=== PATIENT | female | born 1980 | race Caucasian/White ===

== ENCOUNTER 2018-07-29 16:36 | Emergency (ER) | payer OTHER ==
[2018-07-29 21:34] LABS: Urine Specific Gravity 1.025 (1.005-1.030)
[2018-07-29 21:34] LABS: Urine Blood TRACE (NEG); Urine Glucose NEGATIVE (NEG); Urine Protein NEGATIVE (NEG); Urine Specific Gravity 1.025 (1.005-1.030); Urine pH 5.5 (5.0-7.0)
--- NOTE | 2018-07-29 22:00 | ER ---
Nurse's Notes [facility] Name: Augusto López Age: 37 yrs Sex: Female : 1980 Arrival Date: 07/29/2018 Time: 16:40 Bed 10 Private MD: Diagnosis: Pain in right toe(s)-Right second toe Presentation: 07/29 16:45 Presenting complaint: Patient states: pain, swelling, and redness noted to right 2 nd aa5 toe. Denies known injury. Transition of care: patient was not received from another setting of care. Onset of symptoms was July 28, 2018. Risk Assessment: Do you want to hurt yourself or someone else? Patient reports no desire to harm self or others. Initial Sepsis Screen: Does the patient meet any 2 criteria? No. Patient's initial sepsis screen is negative. Does the patient have a suspected source of infection? No. Patient's initial sepsis screen is negative. Care prior to arrival: None. 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 - Social history:: Smoking status: Patient/guardian denies using tobacco. - Ebola Screening: : No symptoms or risks identified at this time. Screenin:54 Abuse screen: Denies threats or abuse. Nutritional screening: No deficits noted. fc Tuberculosis screening: No symptoms or risk factors identified. Fall Risk None identified. Assessment: 20:40 General: Appears uncomfortable, Behavior is calm, cooperative, appropriate for age. fc Pain: Complains of pain in Right second toenail Pain currently is 8 out of 10 on a pain scale. Quality of pain is described as aching, dull, throbbing, Pain began 1 day ago. Is continuous, Aggravated by increased activity, repositioning, weight bearing. Neuro: Level of Consciousness is awake, alert, obeys commands, Oriented to person, place, time, situation, Appropriate for age. Cardiovascular: No deficits noted. Respiratory: Reports. GI: No deficits noted. : No deficits noted. EENT: No deficits noted. Derm: Skin is pink, warm \T\ dry. redness to right second toe. Musculoskeletal: Circulation, motion, and sensation intact. Capillary refill < 3 seconds, Range of motion: intact in all extremities, Swelling present in Right second toenail Reports pain in Right second toenail. 21:00 Reassessment: Yue OCAMPO in to see and examine pt. 21:50 Reassessment: DR Arredondo in to see and examine pt after discussion with Yue OCAMPO. Vital Signs: 16:46 BP 122 / 73; Pulse 92; Resp 16 S; Temp 99.0(TE); Pulse Ox 98% on R/A; Weight 90.72 kg aa5 (R); Height 5 ft. 7 in. (170.18 cm) (R); Pain 6/10; 16:46 Body Mass Index 31.32 (90.72 kg, 170.18 cm) aa5 ED Course: 16:40 Patient arrived in ED. mr 16:45 Arm band placed on. aa5 16:46 Triage completed. aa5 20:44 Sky Turner PA is PHCP. cp 20:44 Aidan Arredondo MD is Attending Physician. cp 20:54 Patient has correct armband on for positive identification. Bed in low position. Call fc light in reach. 20:54 No provider procedures requiring assistance completed. 21:30 XRAY Foot RIGHT 3 View In Process Unspecified. EDAL 22:23 Reginald Baxter, RN is Primary Nurse. fu 22:40 Crutch training done. made to wear post op shoe. fu Administered Medications: 22:00 Drug: Ibuprofen 800 mg Route: PO; 22:26 Drug: Tylenol 1000 mg Route: PO; fu Outcome: 21:59 Discharge ordered by . cp 22:42 Discharged to home with crutches. fu 22:42 Condition: stable 22:42 Discharge instructions given to patient, Instructed on crutch walking, Demonstrated understanding of instructions, follow-up care, medications, crutch walking, Prescriptions given X 1. 22:43 Patient left the ED. fu Signatures: Dispatcher [employer] [facility] FrantzNakia ChantalecristineCheyanne RN RN Nirali Davis RN RN aa5 Page, Sky, PA PA cp Umadhay, Reginald, RN RN fu
--- NOTE | 2018-07-29 22:01 | EDPHYS ---
Physician Documentation [facility] Name: Augusto López Age: 37 yrs Sex: Female : 1980 Arrival Date: 07/29/2018 Time: 16:40 Bed 10 Private MD: ED Physician Aidan Arredondo HPI: 07/29 21:00 This 37 yrs old Female presents to ER via Ambulatory with complaints of toe cp problem. 21:00 The patient presents with pain, that is acute, swelling, tenderness. The complaints cp affect the right second toe. 21:00 Context: resulted from an unknown cause, the patient can fully bear weight, the patient cp is able to ambulate, with mild difficulty. Onset: The symptoms/episode began/occurred 2 day(s) ago, and became worse yesterday. Associated signs and symptoms: Pertinent negatives: calf tenderness, fever, numbness, injury. Severity of symptoms: in the emergency department the symptoms are unchanged. 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 - Social history:: Smoking status: Patient/guardian denies using tobacco. - Ebola Screening: : No symptoms or risks identified at this time. ROS: 21:05 Constitutional: Negative for body aches, chills, fever, poor PO intake. cp 21:05 Eyes: Negative for injury, pain, redness, and discharge. cp 21:05 ENT: Negative for drainage from ear(s), ear pain, sore throat, difficulty swallowing, difficulty handling secretions. 21:05 Cardiovascular: Negative for chest pain. 21:05 Respiratory: Negative for cough, wheezing. 21:05 Abdomen/GI: Negative for abdominal pain, vomiting, diarrhea, constipation. 21:05 Back: Negative for pain at rest, pain with movement. 21:05 MS/extremity: Positive for pain, swelling, tenderness, of the right second toe, Negative for injury or acute deformity, decreased range of motion, paresthesias. 21:05 All other systems are negative. Exam: 21:10 Constitutional: The patient appears in no acute distress, alert, awake, non-toxic, well cp developed, well nourished. 21:10 Head/Face: Normocephalic, atraumatic. cp 21:10 Eyes: Periorbital structures: appear normal, Conjunctiva: normal, Lids and lashes: appear normal, bilaterally. 21:10 ENT: External ear(s): are unremarkable, Nose: is normal, Posterior pharynx: Airway: no evidence of obstruction, patent. 21:10 Chest/axilla: Inspection: normal. 21:10 Cardiovascular: Rate: normal. 21:10 Respiratory: the patient does not display signs of respiratory distress, Respirations: normal, no use of accessory muscles, no retractions, no splinting, no tachypnea. 21:10 Abdomen/GI: Exam negative for discomfort, distension, guarding, Inspection: abdomen appears normal. 21:10 Musculoskeletal/extremity: Extremities: grossly normal except: noted in the right second toe: pain, swelling, tenderness, There is no evidence of decreased ROM, erythema, open wound, Perfusion: the extremity is normally perfused throughout, Sensation intact. Vital Signs: 16:46 BP 122 / 73; Pulse 92; Resp 16 S; Temp 99.0(TE); Pulse Ox 98% on R/A; Weight 90.72 kg aa5 (R); Height 5 ft. 7 in. (170.18 cm) (R); Pain 6/10; 16:46 Body Mass Index 31.32 (90.72 kg, 170.18 cm) aa5 MDM: 20:44 Patient medically screened. cp 21:00 Differential diagnosis: fracture, gout, cellulitis. cp 21:57 Data reviewed: vital signs, nurses notes, radiologic studies, plain films. cp 21:57 Test interpretation: by ED physician or midlevel provider: plain radiologic studies. cp Counseling: I had a detailed discussion with the patient and/or guardian regarding: the historical points, exam findings, and any diagnostic results supporting the discharge/admit diagnosis, radiology results. ED course: VSS. Xrays of right foot negative for fracture. 07/29 21:28 Order name: Urine Dipstick--Ancillary (enter results); Complete Time: 21:41 ar5 07/29 21:41 Interpretation: Reviewed. cp 07/29 21:29 Order name: Urine --Ancillary (enter results); Complete Time: 21:41 ar5 07/29 21:41 Interpretation: Reviewed. 07/29 20:53 Order name: XRAY Foot RIGHT 3 View; Complete Time: 19:29 cp 07/29 21:04 Order name: Urine Test (obtain specimen); Complete Time: 21:25 cp 07/29 21:04 Order name: Urine Dipstick-Ancillary (obtain specimen); Complete Time: 21:25 cp 07/29 21:58 Order name: Crutches; Complete Time: 22:40 cp 07/29 21:58 Order name: Post-op shoe; Complete Time: 22:40 cp Administered Medications: 22:00 Drug: Ibuprofen 800 mg Route: PO; 22:26 Drug: Tylenol 1000 mg Route: PO; fu Disposition: 07/30 08:56 Co-signature as Attending Physician, Aidan Arredondo MD I agree with the assessment and ar plan of care. Disposition: 07/29/18 21:59 Discharged to Home. Impression: Pain in right toe(s) - Right second toe. - Condition is Stable. - Discharge Instructions: Musculoskeletal Pain. - Prescriptions for Prednisone 20 mg Oral Tablet - take 2 tablet by ORAL route once daily for 5 days; 10 tablet. - Medication Reconciliation Form, Thank You Letter, Antibiotic Education, Prescription Opioid Use form. - Follow up: Private Physician; When: 2 - 3 days; Reason: Worsening of condition. - Problem is new. - Symptoms have improved. Signatures: Dispatcher [employer] EDMS Cheyanne Mcconnell RN RN Nirali Davis RN RN aa5 Sky Turner PA PA Aidan Painting MD MD ar Reginald Baxter RN RN Corrections: (The following items were deleted from the chart) 07/29 22:43 21:59 07/29/2018 21:59 Discharged to Home. Impression: Pain in right toe(s) - Right fu second toe. Condition is Stable. Forms are Medication Reconciliation Form, Thank You Letter, Antibiotic Education, Prescription Opioid Use. Follow up: Private Physician; When: 2 - 3 days; Reason: Worsening of condition. Problem is new. Symptoms have improved. cp
[2018-07-29] MEDS ORDERED: IBUPROFEN 400 MG TAB ONE (22:07)
[2018-07-29] MEDS ORDERED: ACETAMINOPHEN 500 MG TAB ONE (22:33)
--- NOTE | 2018-07-30 08:17 | RAD REPORT ---
EXAM DESCRIPTION: RAD - Foot Right 3 View - 07/29/2018 9:30 pm CLINICAL HISTORY: Foot pain, pain and swelling with redness second toe COMPARISON: None. FINDINGS: No fracture, dislocation or periosteal reaction. No acute or destructive bone process of t he second toe nor elsewhere in the right foot. No air or foreign body in the soft tissues. Plantar and Achilles spurs are present. IMPRESSION: Negative right foot examination for acute finding. Specifically, no significant bone or soft tissue finding second toe.
== END 2018-07-29 22:43 | disposition home or self-care (01) ==
LOC: ER 16:36
DX: M79.674 Pain in right toe(s) (principal); F41.9 Anxiety disorder, unspecified
CPT/HCPCS: 81003; 81025; 99284

== ENCOUNTER 2020-05-06 17:44 | Emergency (ER) | payer OTHER ==
--- NOTE | 2020-05-06 21:18 | RAD REPORT ---
EXAM DESCRIPTION: RAD - Chest Single View - 05/06/2020 9:06 pm CLINICAL HISTORY: CHEST PAIN, COVID positive COMPARISON: None TECHNIQUE: AP portable chest image was obtained 05/06/2020 9:06 pm . FINDINGS: No dense mass or consolidation seen. Patient has minimal patchy airspace opacification in the lower lung dale. No failure or volume overload. Heart and vasculature are normal. No measurable pleural effusion and no pneumothorax. No acute bone finding. Prominent S-shaped thoracic scoliotic c urvature present. No acute aortic findings suspected. IMPRESSION: Minimal airspace opacification. Given the provided history, this is probably a minimal C OVID-19 pneumonia.
[2020-05-06 21:22] LABS: Absolute Lymphocytes (CBC) 3.1 K/uL (0.7-4.9); Basophils % 1.3 % (0-1.3); Hematocrit 43.2 % (36.0-45.0); Lymphocytes % 36.4 % (15.3-44.8); MPV 10.2 fL (7.6-11.3); RBC Red Blood Cell Count 4.93 M/uL (3.86-4.86)
[2020-05-06 21:23] LABS: Protime INR 0.99
[2020-05-06 21:40] LABS: ALT/SGPT 29 U/L (12-78); AST/SGOT 20 U/L (15-37); Albumin 3.8 g/dL (3.4-5.0); Alkaline Phosphatase 99 U/L (45-117); BUN Blood Urea Nitrogen 9 mg/dL (7-18); Bicarbonate 25 mmol/L (21-32); Bilirubin Direct < 0.1 mg/dL (0-0.2); Bilirubin Total 0.3 mg/dL (0.2-1.0); Glucose Level 81 mg/dL (74-106); NT PRO-BNP 15 pg/mL (<125); Potassium 3.8 mmol/L (3.5-5.1); Protein, Total 8.2 g/dL (6.4-8.2); Sodium Level 139 mmol/L (136-145); Troponin (Emerg Dept Use Only) < 0.02 ng/mL (0.0-0.045)
--- NOTE | 2020-05-06 23:17 | ER ---
Nurse's Notes [facility] Name: Augusto López Age: 39 yrs Sex: Female : 1980 Arrival Date: 05/06/2020 Time: 17:47 Bed 8 Private MD: Diagnosis: Chest pain, unspecified;Coronavirus infection, unspecified Presentation: 05/06 18:03 Chief complaint: Patient states: Tested positive for COVID on 05-01-20, have been jl7 asymptomatic with intermittent chest pressure, last night had worsening chest pressure with left arm numbness today. Coronavirus screen: Client reports previous positive COVID test result. Date of collection: May 01, 2020 Staff notified of need for isolation. Ebola Screen: No symptoms or risks identified at this time. Initial Sepsis Screen: Does the patient meet any 2 criteria? No. Patient's initial sepsis screen is negative. Does the patient have a suspected source of infection? No. Patient's initial sepsis screen is negative. Risk Assessment: Do you want to hurt yourself or someone else? Patient reports no desire to harm self or others. Onset of symptoms was May 04, 2020. Care prior to arrival: None. 18:03 Method Of Arrival: Ambulatory 7 18:03 Acuity: GABRIEL 2 jl7 Triage Assessment: 18:08 General: Appears in no apparent distress. uncomfortable, Behavior is calm, cooperative, jl7 appropriate for age. Pain: Complains of pain in mid-sternal area Pain radiates to left arm Pain currently is 0 out of 10 on a pain scale. Cardiovascular: Patient's skin is warm and dry. 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 - Social history:: Smoking status: Patient denies any tobacco usage or history of. Screenin:26 Abuse screen: Denies threats or abuse. Denies injuries from another. Nutritional rv screening: No deficits noted. Tuberculosis screening: No symptoms or risk factors identified. Fall Risk None identified. Assessment: 21:25 General: Appears comfortable, Behavior is calm, cooperative. Pain: Complains of pain in rv chest Pain began suddenly. Pain: Quality of pain is described as pressure. Pain: Pain does not radiate. Neuro: Level of Consciousness is awake, alert, obeys commands, Oriented to person, place, time, situation. Cardiovascular: Patient's skin is warm and dry. Rhythm is sinus rhythm. Respiratory: Airway is patent Respiratory effort is even, unlabored, Breath sounds are clear bilaterally. Vital Signs: 18:03 BP 138 / 76; Pulse 89; Resp 17; Temp 97.8; Pulse Ox 100% ; Weight 117.93 kg; Height 5 jl7 ft. 7 in. (170.18 cm); Pain 0/10; 21:27 BP 127 / 73; Pulse 74; Resp 16; Pulse Ox 100% on R/A; rv 22:37 BP 118 / 73; Pulse 80; Resp 18; Pulse Ox 99% ; ea 23:27 BP 117 / 74; Pulse 81; Resp 17; Temp 98; Pulse Ox 99% on R/A; rv 18:03 Body Mass Index 40.72 (117.93 kg, 170.18 cm) jl7 ED Course: 17:47 Patient arrived in ED. bp1 18:07 Triage completed. jl7 18:08 Arm band placed on right wrist. Patient placed in waiting room, in view of staff [facility] members, Patient notified of wait time. 20:39 Jamie Ortiz PA is PHCP. [facility] 20:39 Jorge Pop MD is Attending Physician. [facility] 20:53 Margarito Daigle, BLAKE is Primary Nurse. rv 21:05 XRAY Chest (1 view) In Process Unspecified. EDMS 21:10 Inserted saline lock: 20 gauge in right antecubital area, using aseptic technique. rv Blood collected. 21:10 Initial lab(s) drawn, by fl, sent to lab. rv 21:27 Patient has correct armband on for positive identification. ekg monitor tech on. Pulse rv ox on. NIBP on. 21:27 No provider procedures requiring assistance completed. Patient maintains SpO2 rv saturation greater than 95% on room air. 23:27 IV discontinued, intact, bleeding controlled, No redness/swelling at site. rv Administered Medications: No medications were administered Outcome: 23:17 Discharge ordered by . jmm 23:27 Discharged to home ambulatory. rv 23:27 Condition: good 23:27 Discharge instructions given to patient, Instructed on discharge instructions, follow up and referral plans. medication usage, Demonstrated understanding of instructions, follow-up care, medications, Prescriptions given X 1. 23:27 Patient left the ED. rv Signatures: Dispatcher [employer] EDMS Jamie Ortiz PA PA jmm Leal, Jahala, RN RN jl7 Iman Oseguera RN Margarito Tyler ea RN RN Stacy Roa [facility]
--- NOTE | 2020-05-06 23:18 | EDPHYS ---
Physician Documentation [facility] Name: Augusto López Age: 39 yrs Sex: Female : 1980 Arrival Date: 05/06/2020 Time: 17:47 Bed 8 Private MD: ED Physician Jorge Pop HPI: 05/06 20:55 This 39 yrs old Female presents to ER via Ambulatory with complaints of Chest jmm Pressure, Covid+. 20:55 Onset: The symptoms/episode began/occurred gradually, 1.5 day(s) ago. jmm 20:56 The pain radiates to the left arm. Associated signs and symptoms: Pertinent positives: jmm cough, Pertinent negatives: shortness of breath. The chest pain is described as a heaviness, a pressure. Duration: The patient or guardian reports multiple episodes, the episodes last approximately 30 minute(s). Modifying factors: The symptoms are alleviated by nothing. the symptoms are aggravated by nothing. The patient has not experienced similar symptoms in the past. Patient states she tested positive for covid 19 on 05/01/2020. Patient has currently had symptoms for 9 days. . 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 - Social history:: Smoking status: Patient denies any tobacco usage or history of. ROS: 20:56 Constitutional: Negative for fever, chills, and weight loss. jmm 20:56 Cardiovascular: Positive for chest pain. 20:56 Respiratory: Positive for cough. 20:56 All other systems are negative. Exam: 18:05 ECG was reviewed by the Attending Physician. jmm 20:56 Constitutional: This is a well developed, well nourished patient who is awake, alert, jmm and in no acute distress. Head/Face: atraumatic. Eyes: EOMI, no conjunctival erythema appreciated ENT: Moist Mucus Membranes Neck: Trachea midline, Supple Chest/axilla: Normal chest wall appearance and motion. Cardiovascular: Regular rate and rhythm. No edema appreciated Respiratory: Normal respirations, no respiratory distress appreciated Abdomen/GI: Non distended, soft Back: Normal ROM Skin: General appearance color normal MS/ Extremity: Moves all extremities, no obvious deformities appreciated, no edema noted to the lower extremities Neuro: Awake and alert, normal gait Psych: Behavior is normal, Mood is normal, Patient is cooperative and pleasant Vital Signs: 18:03 BP 138 / 76; Pulse 89; Resp 17; Temp 97.8; Pulse Ox 100% ; Weight 117.93 kg; Height 5 jl7 ft. 7 in. (170.18 cm); Pain 0/10; 21:27 BP 127 / 73; Pulse 74; Resp 16; Pulse Ox 100% on R/A; rv 22:37 BP 118 / 73; Pulse 80; Resp 18; Pulse Ox 99% ; ea 23:27 BP 117 / 74; Pulse 81; Resp 17; Temp 98; Pulse Ox 99% on R/A; rv 18:03 Body Mass Index 40.72 (117.93 kg, 170.18 cm) jl7 MDM: 20:50 Patient medically screened. monroe 23:15 Data reviewed: vital signs, nurses notes. Counseling: I had a detailed discussion with monroe the patient and/or guardian regarding: the historical points, exam findings, and any diagnostic results supporting the discharge/admit diagnosis, lab results, radiology results, the need for outpatient follow up, to return to the emergency department if symptoms worsen or persist or if there are any questions or concerns that arise at home. ED course: Patient is alert and non toxic in appearance in the ED. No signs of resp distress. D-dimer negative. Low likelihood of cardiac involvement. Advised to return to the ED if symptoms worsen. Patient understood and agrees with the plan of care. . 05/06 20:51 Order name: Basic Metabolic Panel; Complete Time: 21:49 [facility] 05/06 20:51 Order name: CBC with Diff; Complete Time: 21:29 [facility] 05/06 20:51 Order name: LFT's; Complete Time: 21:49 [facility] 05/06 20:51 Order name: Magnesium; Complete Time: 21:49 [facility] 05/06 20:51 Order name: NT PRO-BNP; Complete Time: 21:49 [facility] 05/06 20:51 Order name: PT-INR; Complete Time: 21:29 [facility] 05/06 20:51 Order name: Troponin (emerg Dept Use Only); Complete Time: 21:49 [facility] 05/06 20:51 Order name: XRAY Chest (1 view); Complete Time: 21:29 [facility] 05/06 20:51 Order name: EKG; Complete Time: 20:52 [facility] 05/06 20:51 Order name: Cardiac monitoring; Complete Time: 21:27 [facility] 05/06 20:51 Order name: EKG - Nurse/Tech; Complete Time: 21:27 [facility] 05/06 20:51 Order name: IV Saline Lock; Complete Time: 21:27 [facility] 05/06 20:52 Order name: D-Dimer; Complete Time: 22:45 [facility] 05/06 20:51 Order name: Labs collected and sent; Complete Time: 21:27 [facility] 05/06 20:51 Order name: O2 Per Protocol; Complete Time: 21:28 [facility] 05/06 20:51 Order name: O2 Sat Monitoring; Complete Time: 21:27 jm EC:05 Rate is 79 beats/min. Rhythm is regular. QRS [place] is Normal. NV interval is normal. QRS jmm interval is normal. QT interval is normal. No Q waves. T waves are Normal. No ST changes noted. Reviewed by me. Administered Medications: No medications were administered Disposition: 05/07 05:56 Co-signature as Attending Physician, Jorge Pop MD. 7 Disposition: 05/06/20 23:17 Discharged to Home. Impression: Chest pain, unspecified, Coronavirus infection, unspecified. - Condition is Stable. - Discharge Instructions: Nonspecific Chest Pain, COVID-19. - Prescriptions for Prednisone 20 mg Oral Tablet - take 3 tablet by ORAL route once daily for 5 days; 15 tablet. - Medication Reconciliation Form, Thank You Letter, Antibiotic Education, Prescription Opioid Use form. - Follow up: Private Physician; When: 2 - 3 days; Reason: Recheck today's complaints, Continuance of care, Re-evaluation by your physician. Signatures: Dispatcher [employer] EDJamie Franz PA PA jmm Leal, Jahala RN RN jl7 Margarito Daigle RN Jorge Crane MD MD 7 Corrections: (The following items were deleted from the chart) 05/06 23:24 22:27 Chest For PE Angio+CT.RAD.BRZ ordered. EDWY EDMS 23:27 23:17 05/06/2020 23:17 Discharged to Home. Impression: Chest pain, unspecified; rv Coronavirus infection, unspecified. Condition is Stable. Forms are Medication Reconciliation Form, Thank You Letter, Antibiotic Education, Prescription Opioid Use. Follow up: Private Physician; When: 2 - 3 days; Reason: Recheck today's complaints, Continuance of care, Re-evaluation by your physician. monroe
[2020-05-06 23:38] VITALS: O2SAT 99
[2020-05-06 23:39] VITALS: BP 117/74; TEMP 98
--- NOTE | 2020-05-07 07:25 | EKG ---
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
== END 2020-05-06 23:27 | disposition home or self-care (01) ==
LOC: ER 17:44
DX: U07.1 COVID-19 (principal); R07.9 Chest pain, unspecified; F41.9 Anxiety disorder, unspecified
CPT/HCPCS: 36415; 71045; 80048; 80076; 83735; 83880; 84484; 85025; 85379; 85610; 93005; 99285